=== PATIENT | male | born 1960 | race African-American/Black ===

== ENCOUNTER 2016-06-04 09:40 | Day surgery (SDC) | payer OTHER ==
[~2016-06-04 09:40] MED LIST: HEPARIN IV PRN; HEPARIN ONE; NS 2,000 ML MISC PRN; NS 2,000 ML ONE; TIGHT: 0.2 ML/HR MISC PRN
[2016-06-04 11:06] LABS: HEMOGLOBIN 6.6 g/dL (14.0-18.0); MCH 25.6 PG (27-31); MCHC 31.4 g/dL (33-37); MCV 81.4 FL (81-99); MPV 12.9 FL (7.4-10.4); RBC 2.58 XMIL (4.7-6.1)
[2016-06-04 11:12] LABS: ALBUMIN 2.8 g/dL (3.5-5.0); CALCIUM 8.7 mg/dL (8.8-10.2); POTASSIUM 4.7 mmol/L (3.5-5.1)
[2016-06-04 14:29] VITALS: BP 111/70
== END 2016-06-04 14:25 | disposition home or self-care (01) ==
LOC: INF 09:40
PROVIDERS: ATTEND Internal Medicine Nephrology
DX: N18.6 End stage renal disease (principal); D63.1 Anemia in chronic kidney disease; Z79.899 Other long term (current) drug therapy; Z99.2 Dependence on renal dialysis
CPT/HCPCS: 80069; 85027; 86850; 86900; 86901; 86920; J1644; J7030; P9016

== ENCOUNTER 2016-06-05 09:21 | Emergency (ER) | payer OTHER ==
[2016-06-05 10:02] VITALS: BP 80/50
[2016-06-05] MEDS ORDERED: NORCO-10 PO ONE (10:47)
--- NOTE | 2016-06-05 10:47 | PROVIDER DOCUMENTATION ---
HPI-Musculoskeletal Pain/Inj <Imani Hawthorne - Last Filed: 06/05/16 11:00> - GENERAL Source: patient - HX OF PRESENT ILLNESS-MUSKULOSKELTAL Quality of Pain: reports: throbbing Severity in ED: severe Onset/Duration: last night Timing: still present Modifying Factors: worse with: exercise, movement, palpation Any recent injury?: No Locality of Occurance: Home Similar Symptoms Previously?: No Recently seen or treated by another doctor?: No <Modesto Chua - Last Filed: 06/05/16 11:17> - GENERAL Chief Complaint: Extremity Pain Stated Complaint: EXTREMITY INJURY Time Seen by Provider: 06/05/16 10:44 - HX OF PRESENT ILLNESS-MUSKULOSKELTAL Nature of Presenting Problem: 56 yom recently changed from peritoneal dialysis to hemodialysis M,W,F. Reports cc of left wrist pain since last night. Hx of gout normally in feet. Throbbing radiating pain to mid hand and forearm. Transfers from bed to chair alot. Denies any injuries,f,c,abd pain. (Modesto Chua) Review of Systems - Adult - REVIEW OF SYSTEMS - ADULT Constitutional: denies: chills, fever, fatique Eyes: reports: no symptoms reported Ears, Nose, Mouth & Throat: reports: no symptoms reported Cardiovascular: denies: chest pain, irregular heart rate, orthopnea Respiratory: reports: no symptoms reported Gastrointestinal: reports: no symptoms reported Genitourinary: reports: no symptoms reported Musculoskeletal: reports: see HPI, joint pain. denies: joint swelling, muscle weakness, neck pain Integumentary: reports: no symptoms reported Neurological: reports: no symptoms reported Psychiatric: reports: no symptoms reported Endocrine: reports: no symptoms reported Hematologic/Lymphatic: reports: no symptoms reported Allergic/Immunologic: reports: no symptoms reported All Other Systems: Reviewed and Negative <Modesto Chua - Last Filed: 06/05/16 11:17> Past History - Adult - PAST MEDICAL HISTORY-ADULT Major Childhood Illnesses: reports: denies history Cardiovascular: reports: HTN - PRIOR SURGERIES/PROCEDURES Surgical/Procedure History: reports: back/neck, other (kidney transplant) - PRIOR HOSPITALIZATIONS Prior Hospitalizations: reports: none - IMMUNIZATION STATUS Childhood Immunizations: See Nurse Assessment Flu Vaccine: See Nurse Assessment - FAMILY HISTORY Family History: reviewed, not pertinent <Imani Hawthorne - Last Filed: 06/05/16 11:00> - PAST MEDICAL HISTORY-ADULT Review of Records: reports: Nursing Assessment Review Major Childhood Illnesses: reports: denies history Cardiovascular: reports: HTN Genitourinary: reports: dialysis Neurological: reports: TIA - IMMUNIZATION STATUS Childhood Immunizations: See Nurse Assessment Flu Vaccine: See Nurse Assessment - FAMILY HISTORY Family History: reviewed, not pertinent - SOCIAL HISTORY Smoking: quit greater than 1 year Substance Use: none/never <Modesto Chua - Last Filed: 06/05/16 11:17> Physical Exam-Injury Related - Physical Exam-Injury Related Initial Vital Signs Reviewed: Yes General Appearance: appears well, alert, mild distress Eyes: PERRL/EOMI, pink conjunctivae Head, Ears, Nose, Mouth & Throat: normocephalic/atraumatic, moist mucous membranes, normal ENT inspection, TMs normal, pharynx normal Neck: non-tender, full range of motion, supple, normal inspection Respiratory: chest non-tender, lungs clear, normal breath sounds, no pleuratic chest pain, no respiratory distress, no accessory muscle use Cardiovascular: normal peripheral pulses, regular rate, rhythm, no edema, no gallop, no JVD, no murmur Peripheral Pulses: radial (R): 2+, radial (L): 2+ Abdominal Exam: normal bowel sounds, non tender, soft, no organomegaly, no pulsatile mass Lymphatic: no adenopathy Back Exam: normal inspection, no CVA tenderness, no vertebral tenderness Extremity: normal gait, normal inspection, no pedal edema, no calf tenderness, normal capillary refill, pelvis stable, tenderness (ttp left wrist with erythmema and swelling), 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, no motor/sensory deficits Psych/Mental Status: AL, normal mood/affect, normal thought content, normal thought process, oriented x 3 <Modesto Chua - Last Filed: 06/05/16 11:17> Progress - XRAY 1 XRAY: Left XRAY Study: Wrist Impression: Normal (NAD ER prelim) <Imani Hawthorne - Last Filed: 06/05/16 11:00> <Modesto Chua - Last Filed: 06/05/16 11:17> - PLAN OF CARE/RESULTS Progress/Plan/Lab Results: Orders Category Date Time Status Arm Sling DIRECTED Care 06/05/16 11:00 Active Wrist Splint DIRECTED Care 06/05/16 10:46 Active WRIST COMPLETE LEFT [RAD] Stat Exams 06/05/16 10:46 Taken Hydrocodone/APAP 10 mg/325 mg [[place]-10] Med 06/05/16 10:47 Discontinued 1 each PO NOW ONE Vital Signs - 24 hr 06/05/16 09:55 Temperature 97.8 F Pulse Rate 50 L Respiratory 20 Rate Blood Pressure 80/50 O2 Sat by Pulse 98 Oximetry (Modesto Chua) Procedures - SPLINTING Left Other Location: left wrist Pre-Procedure Neurovascular Exam: Intact Pre-Fabricated Splint: Wrist, Arm Sling Applied By: ED Nurse Post Procedure Neurovascular Exam: Intact <Modesto Chua - Last Filed: 06/05/16 11:17> Departure - Departure Time of Disposition Order: 11:00 Certified Medical Emergency: Emergent <Imani Hawthorne - Last Filed: 06/05/16 11:00> <Modesto Chua - Last Filed: 06/05/16 11:17> - Departure DIAGNOSIS: Gout attack Qualifiers: Gout site: wrist Gout etiology: unspecified cause Laterality: left Qualified Code(s): M10.9 - Gout, unspecified Disposition: HOME 01 Condition: Stable Additional Instructions: Follow up with your primary care physician Take your colchicine as directed ED Follow Up Instructions: You have been treated by a care provider in the Emergency Department. These instructions are being provided to you so you can have an understanding of how to care for yourself upon discharge. Upon discharge from the Emergency Department, you are responsible for making arrangements for follow-up care by a physician of your choice. Take all prescribed medications as directed. Return to the Emergency Department immediately for any new or worsening symptoms. You may call the Physician Referral phone number at [phone] to obtain a list of Physicians who are taking new patients. Prescriptions: Hydrocodone/APAP 7.5 mg/325 mg [[place]-7.5] 1 each PO Q6H PRN PRN #20 tablet PRN Reason: Pain Referrals: Sean Wagoner MD [STAFF PHYSICIAN] - None,PCP [Primary Care Provider] - Instructions: Acetaminophen; Hydrocodone tablets or capsules, Gout, Easy-to- Read Attestation - Physician/ Mid-level Attestation Patient care was provided by Mid-level provider (SCOURER/PA):: Yes Mid-level provider:: Imani Hawthorne Mid-level documentation review:: The Mid-level provider documentation, treatment plan and medical decision making was reviewed by the physician who agrees with all treatment and medical decision making by the MLP. <Imani Hawthorne - Last Filed: 06/05/16 11:00> - Scribe Verification/Attestation Scribe:: Modesto Chua Acting as Scribe for:: Imani Hawthorne Scribe documention review:: This chart was documented by a scribe and accurately reflects the service the provider performed and the decisions made by the provider. <Modesto Chua - Last Filed: 06/05/16 11:17> Physician Attestation
--- NOTE | 2016-06-05 14:22 | Diag Imaging Result Document ---
PROCEDURE NAME: WRIST COMPLETE LEFT - 06/05/2016 LEFT WRIST, THREE VIEWS INDICATION: Wrist pain. FINDINGS: Bone density is within normal limits. There is a tiny calcific density adjacent to the lunate on the lateral view of the wrist. This may be seen with a triquetral fracture in the setting of trauma or calcific peritendinitis. Correlate clinically. The joint spaces are well maintained. There is deformity about the fifth metacarpal, consistent with old trauma. IMPRESSION: Dorsal linear density may represent calcific tendinitis vs triquetral fracture. Correlate clinically. [facility]
== END 2016-06-05 11:22 | disposition home or self-care (01) ==
LOC: P.ED 09:21
DX: M10.9 Gout, unspecified (principal); M25.532 Pain in left wrist; I10 Essential (primary) hypertension; Z86.73 Personal history of transient ischemic attack (TIA), and cerebral infarction without residual deficits; Z94.0 Kidney transplant status; Z79.899 Other long term (current) drug therapy; Z79.02 Long term (current) use of antithrombotics/antiplatelets
CPT/HCPCS: 99284

== ENCOUNTER 2016-08-02 11:25 | Inpatient (IN) | payer OTHER ==
[2016-08-02] MEDS: ZOSYN 2.25 GM/NS 50 ML IV SCH (00:02)
--- NOTE | 2016-08-02 12:40 | Diag Imaging Result Document ---
PROCEDURE NAME: CHEST-2 VIEWS - 08/02/2016 FRONTAL AND LATERAL CHEST, TWO VIEWS: COMPARISON: 06/20/2016. FINDINGS: There are basilar infiltrates bilaterally. There is a small left pleural effusion as well. The heart is not enlarged. The upper lungs are clear. IMPRESSION: Bibasilar infiltrates with a small left effusion.
[2016-08-02 13:52] LABS: BASO% 0.3 % (0.0-0.8); EOS# 0.55 X1000 (0.0-0.7); EOS% 8.7 % (0.0-10.0); HEMATOCRIT 30.5 % (42.0-52.0); HEMOGLOBIN 10.2 g/dL (14.0-18.0); IMM GRAN# 0.02 X1000 (0.0-0.04); IMM GRAN% 0.3 % (0.0-0.5); LYMPH# 1.07 X1000 (1.2-3.4); LYMPH% 16.9 % (20.5-51.1); MANUAL DIFF NEEDED? YES; MCH 23.6 PG (27-31); MCHC 33.4 g/dL (33-37); MCV 70.4 FL (81-99); MONO# 0.67 X1000 (0.11-0.59); MONO% 10.6 % (1.7-9.3); NEUT% 63.2 % (42.2-75.2); PLT 223 X1000 (130-400); RBC 4.33 XMIL (4.7-6.1)
[2016-08-02] MEDS ORDERED: ALBUTEROL NEB INH ONE (14:01)
[2016-08-02 14:14] LABS: BANDS 1 % (0-1); EOS 5 % (1-10); LYMPHS 17 % (21-51); MONO 7 % (1-9)
[2016-08-02 14:22] LABS: CALCIUM 8.6 mg/dL (8.8-10.2); POTASSIUM 4.4 mmol/L (3.5-5.1); TOTAL BILIRUBIN 0.52 mg/dL (0.20-1.00); TOTAL PROTEIN 7.9 g/dL (6.3-8.3)
--- NOTE | 2016-08-02 14:54 | PROVIDER DOCUMENTATION ---
HPI-Respiratory General - General Chief Complaint: Cough Stated Complaint: PNEUMONIA Time Seen by Provider: 08/02/16 13:25 Source: patient, family Allergies/Adverse Reactions: Patient Allergies Allergy/AdvReac Type Severity Reaction Status Date / Time No Known Allergies Allergy Verified 08/02/16 14:42 Home Medications: Home Medication List Medication Instructions Recorded Confirmed Last Taken Type Allopurinol [Zyloprim] 200 mg PO DAILY 07/12/13 08/02/16 06/03/16 History Bumetanide 2 tab PO BID 07/12/13 08/02/16 06/03/16 History Omeprazole 10 mg PO BID 07/12/13 08/02/16 06/03/16 History PRAVAstatin [Pravachol] 40 mg PO DAILY 07/12/13 08/02/16 06/03/16 History Carvedilol 6.25 mg PO BID 08/08/14 08/02/16 06/03/16 History Clopidogrel Bisulfate [Plavix] 75 mg PO DAILY 02/26/16 08/02/16 06/03/16 History Diltiazem HCl [Diltiazem ER] 1 tab PO DAILY 06/04/16 08/02/16 06/03/16 History Losartan [Cozaar] 50 mg PO DAILY 06/04/16 08/02/16 06/03/16 History Hydrocodone/APAP 7.5 mg/325 mg 1 each PO Q6H PRN PRN #20 tablet 06/05/16 Unknown Rx [[place]-7.5] Colchicine 0.6 mg PO DAILY PRN PRN 08/02/16 08/02/16 Unknown History Sevelamer Carbonate [Renvela] 800 mg PO TID 08/02/16 08/02/16 Unknown History Vitamin B Complex & Vit C No.3 [B 1 tab PO DAILY 08/02/16 08/02/16 Unknown History Complex with Vitamin C] - History of Present Illness-Resp Nature of Presenting Problem: 56 Y/O m PRESENTED TO ER COMPLAINING OF PRODUCTIVE YELLOW/GREENISH COUGH AND CHRONIC SOB THAT HAVE BEEN GETTING WORSE LATELY. HE STATED THAT HE WAS RECENTLY ADMITTED AT [facility] FOR UTI AND PNEUMONIA AND WAS TREATED WITH IV ANITBIOTIC FOR ONE WEEK AND WAS DISCHARGED HOME. HE HAS A HISTORY OF CHRONIC KIDNEY DISEASE S/P TRANSPLANT AND CHRONIC ANEMIA WHICH RENDERED HIM SHORT OF BREATH CHRONICALLY. HE DENIES FEVER, CHILLS, CHEST PAIN. Severity in ED: reports: moderate Onset/Duration: reports: 2 days ago Timing: reports: getting worse Context: reports: recent URI Cough Quality/Degree: reports: moderate Episode Frequency: no prior episodes Current Respiratory Medication Therapy: Initiated none Associated Symptoms: reports: shortness of breath. denies: fever/chills, flu- like symptoms, nasal congestion, sore throat, wheezing Similar Symptoms Previously?: Yes Recently seen or treated by another doctor?: Yes Review of Systems - Adult - REVIEW OF SYSTEMS - ADULT Constitutional: reports: no symptoms reported Eyes: reports: no symptoms reported Ears, Nose, Mouth & Throat: reports: no symptoms reported Cardiovascular: reports: no symptoms reported Respiratory: reports: cough, dyspnea on exertion, excessive sputum production, shortness of breath Gastrointestinal: reports: no symptoms reported Genitourinary: reports: no symptoms reported Musculoskeletal: reports: no symptoms reported Integumentary: reports: no symptoms reported Neurological: reports: no symptoms reported Past History - Adult - PAST MEDICAL HISTORY-ADULT Review of Records: reports: Nursing Assessment Review Major Childhood Illnesses: reports: denies history Cardiovascular: reports: congenital heart disease, HTN Respiratory: reports: other (CHYLOTHORAX) Gastrointestinal: reports: denies history Genitourinary: reports: dialysis Neurological: reports: TIA - PRIOR SURGERIES/PROCEDURES Surgical/Procedure History: reports: back/neck, other (kidney transplant) - PRIOR HOSPITALIZATIONS Prior Hospitalizations: reports: none - IMMUNIZATION STATUS Childhood Immunizations: See Nurse Assessment Flu Vaccine: See Nurse Assessment - FAMILY HISTORY Family History: reviewed, not pertinent Physical Exam-General - PHYSICAL EXAM-ADULT Initial Vital Signs Reviewed: Yes - CONSTITUTIONAL General Appearance: mild distress - EYES Eyes: PERRL/EOMI - HEAD, EARS, NOSE, MOUTH & THROAT HENMT: normocephalic/atraumatic - NECK Neck: full range of motion, supple - RESPIRATORY Respiratory: lungs clear, no pleuratic chest pain, decreased breath sounds (On the left side). negative: wheezing - CARDIOVASCULAR Cardiovascular: regular rate, rhythm. negative: JVD - GASTROINTESTINAL (ABDOMEN) Abdominal Exam: normal bowel sounds, soft - MUSCULOSKELETAL Extremity: pedal edema Peripheral Pulses: dorsalis-pedis (R): 0, dorsalis-pedis (L): 0 Progress - PLAN OF CARE/RESULTS Progress/Plan/Lab Results: Vital Signs - 24 hr 08/02/16 08/02/16 11:32 14:36 Temperature 98.6 F Pulse Rate 86 82 Respiratory 18 16 Rate Blood Pressure 133/71 O2 Sat by Pulse 100 88 L Oximetry Laboratory Tests 08/02/16 08/02/16 08/02/16 13:21 13:21 13:21 WBC 6.35 RBC 4.33 L Hgb 10.2 L Hct 30.5 L MCV 70.4 L MCH 23.6 L MCHC 33.4 RDW Std Deviation 24.6 H Plt Count 223 MPV Not Reportable Immature Gran % (Auto) 0.3 Neut % (Auto) 63.2 Lymph % (Auto) 16.9 L Stanton % (Auto) 10.6 H Eos % (Auto) 8.7 Baso % (Auto) 0.3 Immature Gran # (Auto) 0.02 Neut # (Auto) 4.02 Lymph # (Auto) 1.07 L Stanton # (Auto) 0.67 H Eos # (Auto) 0.55 Baso # (Auto) 0.02 Segmented Neutrophils 70 Band Neutrophils 1 Lymphocytes 17 L Monocytes 7 Eosinophils 5 Poikilocytosis 2+ Anisocytosis 3+ Microcytosis 1+ Sodium 131 L Potassium 4.4 Chloride 93 L Carbon Dioxide 23 L Anion Gap 15 BUN 39 H Creatinine 6.5 H Estimated GFR/1.73 m2 11 BUN/Creatinine Ratio 6 Glucose 76 Calculated Osmolality 271 Calcium 8.6 L Total Bilirubin 0.52 AST 89 H ALT 63 H Alkaline Phosphatase 104 Egs-S-Oathwuzefgx Pept > 25815 H Total Protein 7.9 Albumin 3.0 L Globulin 4.9 Albumin/Globulin Ratio 0.6 - REASSESSMENT Reassessment #1 Time Reassessed: 15:11 Status: unchanged - XRAY 1 XRAY: Bilateral Impression: Abnormal (B/L basilar infiltrates and left sided pleural effusion) - CONSULTS/PCP/HOSPITALIST Notification #1 *Consult/PCP/Hospitalist*: dr. johnson Departure - Departure Time of Disposition Order: 15:11 DIAGNOSIS: HCAP (healthcare-associated pneumonia), Acute systolic CHF (congestive heart failure), NYHA class 3, Chronic renal failure, stage 5, Anemia Disposition: ADMITTED INPATIENT 09 Certified Medical Emergency: Emergent Condition: Fair Referrals: Alireza Nagel MD [Primary Care Provider] -
[2016-08-02] MEDS ORDERED: LEVAQUIN 750 MG/D5W 150 ML IV ONE (15:07)
--- NOTE | 2016-08-02 17:45 | HISTORY AND PHYSICAL ---
CHIEF ACCOUNTANT: Dr. Alireza Nagel. CHIEF COMPLAINT: Cough, shortness of breath. HISTORY OF PRESENT ILLNESS: Mr. Green is a 56-year-old male with a history of ESRD on hemodialysis followed by Dr. Nagel, also a history of severe atherosclerotic disease, hypertension, chronic anemia requiring blood transfusions and others, who presents with 3 weeks of shortness of breath and cough. He has had progressively worse cough with purulent sputum production over the past 3 weeks. He denies any fevers but reports overall worsening shortness of breath and fatigue. He denies any overt chest pain. There is no abdominal pain , nausea, vomiting. There is no diarrhea. He reports occasional bilateral lower extremity edema but this is normal for him. He came to the ER today for evaluation. His chest x-ray showed bilateral infiltrates, lab data consistent with ESRD but no leukocytosis. Of note, the patient was at [facility] recently and he was treated for VRE UTI and pneumonia. He was treated with IV antibiotics and discharged home. His vital signs are stable. We are now going to admit him for further treatment and evaluation. PAST MEDICAL HISTORY: 1. ESRD on hemodialysis Friday, , Friday followed by Dr. Nagel. 2. Chronic anemia requiring IV blood transfusions. 3. History of non-Hodgkin's lymphoma status post R-CHOP. 4. Hypertension. 5. Hyperlipidemia. 6. Severe atherosclerotic disease/vasculopathy. SURGICAL HISTORY: Patient has had multiple AV grafts and dialysis catheters placed. He has had back surgery. He has had bilateral kidney transplants as well as bilateral nephrectomies. He has had thoracic surgery secondary to a thoracic duct leak, he has also recently had a lower extremity vascular bypass at [facility] by Dr. Castellon. RO. SOCIAL HISTORY: Patient denies tobacco, alcohol or drug use. He is . He has 5 children. FAMILY HISTORY: Noncontributory. REVIEW OF SYSTEMS: Ten point review of systems obtained and found to be negative with the exception of the HPI. HOME MEDICATIONS: Zyloprim 200 mg daily, Bumex 2 mg b.i.d., carvedilol 6.25 mg p.o. b.i.d., Plavix 75 mg daily, colchicine 0.6 mg daily, Cardizem ER 180 mg p.o. daily, Cozaar 50 mg daily, omeprazole 10 mg b.i.d., Pravachol 40 mg daily, Renvela 800 mg p.o. t.i.d., vitamin B complex and vitamin C #3 1 tab daily, [place] 7.5 mg as needed. PHYSICAL EXAMINATION: VITAL SIGNS: Blood pressure is 133/71, heart rate 86, respiratory rate 18, O2 saturation 100% on room air, temperature is 98.6 degrees. GENERAL: This is a well-developed, well-nourished male lying in hospital bed in no acute distress. NEUROLOGIC: The patient is awake, alert and oriented. He follows commands without focal deficits. HEENT: Head is atraumatic, normocephalic. Pupils equal, round, reactive to light. Oral mucosa is moist. Trachea is midline. No JVD or carotid bruits. CHEST: Coarse bilaterally. No increased work of breathing noted. CV: Regular rate and rhythm. S1-S2 is noted. GI: Soft, nondistended, nontender. PD catheter is noted. EXTREMITIES: With trace edema and pulses palpable but diminished bilaterally. DIAGNOSTIC DATA: Chest x-ray shows bibasilar infiltrates with small left effusion. WBC 6.35, hemoglobin 10.2, hematocrit 30.5, platelet count 223,000. Sodium 131, potassium 4.4, chloride 93, CO2 23, anion gap 15, BUN 39, creatinine 6.5, glucose 76, calcium 8.6, bilirubin 0.52, AST 89, ALT 63, alkaline phosphatase 104, albumin is 3. ASSESSMENT AND PLAN: 1. Pneumonia failed outpatient and inpatient treatment: Blood cultures have been obtained. Will obtain sputum cultures and add healthcare-associated pneumonia antibiotics including renally dosed vancomycin and Zosyn. Continue breathing treatments, daily chest x- rays, aggressive pulmonary toilet and oxygen as needed. 2. End-stage renal disease on hemodialysis: Followed by Dr. Nagel. We will consult him for hemodialysis management. Currently his hemoglobin and hematocrit is stable. Acid-base balance is stable. We will continue to monitor. 3. Hypertension: Chronic and stable, continue home medications. 4. Hyperlipidemia: Chronic and stable, continue home medications. 5. Severe atherosclerotic disease/vasculopathy: Continue home medications. This is chronic and stable. 6. Gastrointestinal prophylaxis. Provided with his home PPI. DVT prophylaxis will be provided with heparin given his ESRD. Further recommendations to follow. Dictated by LAMINE Mir for Michelle Kaye MD The patient was seen and examined by me. I agree with the assessment and plan as dictated. MTDD
[2016-08-02] MEDS ORDERED: RENVELA POWDER PACKET PO SCH (20:19)
[2016-08-02] MEDS ORDERED: VANCOMYCIN IV PER PHARMACY IV SCH (20:19)
[2016-08-02] MEDS ORDERED: DUONEB (A & A) INH PRN (20:19)
[2016-08-02] MEDS ORDERED: APRESOLINE IV PRN (20:19)
[2016-08-02] MEDS: DUONEB (A & A) INH SCH (20:41)
[2016-08-02] MEDS ORDERED: VANCOMYCIN 1 GM/NS 250 ML IV ONE (21:00)
[2016-08-02] MEDS ORDERED: BUMETANIDE PO SCH (21:00)
[2016-08-02] MEDS: PRILOSEC PO SCH (21:01)
[2016-08-02] MEDS: COREG PO SCH (21:01)
[2016-08-02] MEDS: NORCO-7.5 PO PRN (21:02)
[2016-08-02] MEDS: HEPARIN SUBQ SCH (21:02)
[2016-08-02] MEDS: MERREM 500 MG in NS 50 ML IV SCH (21:03)
[2016-08-02] MEDS: ZYLOPRIM PO SCH (21:43)
[2016-08-03] MEDS: DUONEB (A & A) INH SCH ×7 (00:08→23:42)
[2016-08-03 07:23] LABS: HEMATOCRIT 26.9 % (42.0-52.0); HEMOGLOBIN 8.8 g/dL (14.0-18.0); MCH 23.3 PG (27-31); MCHC 32.7 g/dL (33-37); MCV 71.2 FL (81-99); PLT 167 X1000 (130-400); RBC 3.78 XMIL (4.7-6.1)
[2016-08-03 07:38] LABS: ALBUMIN 2.5 g/dL (3.5-5.0); DIRECT BILIRUBIN 0.2 mg/dL (0.00-0.20); POTASSIUM 4.2 mmol/L (3.5-5.1); TOTAL BILIRUBIN 0.52 mg/dL (0.20-1.00); TOTAL PROTEIN 6.8 g/dL (6.3-8.3)
[2016-08-03] MEDS ORDERED: TIGHT: 0.2 ML/HR MISC PRN (07:44)
[2016-08-03] MEDS ORDERED: HEPARIN IV PRN (07:44)
[2016-08-03] MEDS ORDERED: NS 2,000 ML MISC PRN (07:44)
[2016-08-03] MEDS ORDERED: ZYLOPRIM PO SCH (09:00)
[2016-08-03] MEDS ORDERED: DILTIAZEM HCL PO SCH (09:00)
[2016-08-03] MEDS ORDERED: HEPARIN ONE (10:04)
[2016-08-03] MEDS ORDERED: NS 2,000 ML ONE (10:05)
[2016-08-03] MEDS: RENAGEL PO SCH ×3 (11:08→17:30)
[2016-08-03] MEDS: ZOSYN 2.25 GM/NS 50 ML IV SCH ×3 (11:08→21:52)
[2016-08-03] MEDS: COREG PO SCH ×2 (11:09→20:33)
[2016-08-03] MEDS: COZAAR PO SCH ×2 (11:09→17:30)
[2016-08-03] MEDS: ZYLOPRIM PO SCH (11:09)
[2016-08-03] MEDS: PRAVACHOL PO SCH ×2 (11:09→17:31)
[2016-08-03] MEDS: PRILOSEC PO SCH ×2 (11:09→20:33)
[2016-08-03] MEDS: VICON-C PO SCH ×2 (11:09→17:31)
[2016-08-03] MEDS: HEPARIN SUBQ SCH ×2 (11:10→20:32)
[2016-08-03] MEDS: PLAVIX PO SCH ×2 (11:10→17:31)
--- NOTE | 2016-08-03 11:49 | Diag Imaging Result Document ---
PROCEDURE NAME: CHEST-2 VIEWS - 08/03/2016 CHEST, TWO VIEWS: COMPARISON: August 02, 2016. FINDINGS: There is some increase in infiltrate in the right base. There has been apparent mild decrease in infiltrate in the left base. There is persistent small left pleural effusion. There is no pneumothorax seen. Heart size appears upper normal and stable. IMPRESSION: 1. Increase in infiltrate at right base. Mild decrease in infiltrate at left base. 2. Persistent small left pleural effusion. [facility]
[2016-08-03] MEDS ORDERED: VANCOMYCIN 1 GM/NS 250 ML IV SCH (12:00)
--- NOTE | 2016-08-03 16:16 | PROGRESS NOTE ---
DATE: 08/03/2016 SUBJECTIVE: The patient is rest sitting comfortably in bed. He is very angry because he wants to go home. OBJECTIVE: Vital Signs: Temperature 98.4 degrees, blood pressure 139/56, heart rate 85, respirations 18, O2 saturations 99% on 2 L nasal cannula. General: This is a morbidly obese elderly male lying in bed in no acute distress. Head: Normocephalic, atraumatic. Heart: S1, S2. Normal. Regular rate and rhythm. Lungs: Coarse breath sounds bilaterally. Abdomen: Positive bowel sounds. Soft, nontender, nondistended. Extremities: Trace edema. No cyanosis, no calf tenderness. Neurologic: The patient is alert oriented x3. LABS: White blood cell count 4.3, hemoglobin 8.8, hematocrit 26, platelets 167, 000. Sodium 131, potassium 4.2, chloride 94, CO2 22, BUN 46, creatinine 7.8, glucose 68, phosphorus 4.9, AST 70, ALT 56. ASSESSMENT AND PLAN: 1. Recurrent pneumonia. Continue on broad-spectrum IV antibiotic therapy. Will follow up on the sputum culture and blood cultures. Will also continue with bronchodilator therapy. ID consult. 2. End-stage renal disease. The patient is due for dialysis today. Management as per the bus inspector. 3. Morbid obesity. Aware. 4. Hypertension. Controlled. 5. Dyslipidemia. Continue on Pravachol. 6. History of gout. Continue on allopurinol. 7. Elevated LFTs. Will check a hepatitis profile. 8. Deep vein thrombosis prophylaxis. Continue on heparin 5000 units subcutaneous every 12 hours. [facility]
[2016-08-03] MEDS ORDERED: LEVAQUIN 250 MG/D5W 50 ML IV SCH (17:00)
--- NOTE | 2016-08-03 20:10 | CONSULTATION ---
DATE OF CONSULTATION: 08/03/2016 REASON FOR ADMISSION: Cough with shortness of breath. REASON FOR CONSULT: Assistance with medical management. HISTORY OF PRESENT ILLNESS: Mr. Green is a 56-year-old male who is known to our outpatient services for hemodialysis on Friday, , Friday at the [facility]. Patient was subsequently recently hospitalized at [facility] for pneumonia. His had called our office yesterday morning indicated that he needed further antibiotics. Secondary to our office not having seen this patient or treated him since his discharge we have recommended that he go to [facility] for further evaluation. He was treated for VRE UTI and pneumonia with IV antibiotics. According to the it was vancomycin and Fortaz. Upon discharge patient stated that he was not feeling well, continue with weakness, continue with cough which was worsening with increased work of breathing and fatigue. He denied any overt chest pain. No nausea, vomiting, no diarrhea. Occasional bilateral increased lower extremity swelling. No fever or chills. Subsequently on evaluation in the emergency room noted that his chest x-ray showed bilateral infiltrates. No leukocytosis. Subsequently he has been admitted for pneumonia with further workup and need for dialysis today. PAST MEDICAL HISTORY: 1. End-stage renal disease with hemodialysis on Friday, , Friday at the [facility]. 2. Chronic anemia requiring IV transfusions secondary to #1. 3. History of non-Hodgkin's lymphoma status post R/CHOP. 4. Hypertension. 5. Hyperlipidemia. 6. Severe atherosclerotic vascular disease. 7. He has a history of osteodystrophy secondary to chronic disease. PREVIOUS SURGICAL HISTORY: Multiple AV grafts and dialysis catheters placed. He currently has a tunnel catheter to the left leg. 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 Bell to the left leg. SOCIAL HISTORY: He is . He lives with his spouse. Denies any tobacco, alcohol or illicit drug use. Five children who are attentive to his care. FAMILY HISTORY: Noncontributory. No history of end-stage renal disease though CKD is noted. Hypertension is noted. ALLERGIES: His most recent medications are listed as no known drug allergies. HOME MEDICATIONS: Bumetanide, Pravachol, Zyloprim, omeprazole, carvedilol, Plavix, Cozaar, diltiazem, Williams, Dialyvite B complex vitamin, colchicine and Renvela. Patient also receives Protein X, Ferrlecit, Aranesp and Rocaltrol at the outpatient clinic as indicated per his labs. REVIEW OF SYSTEMS: Times 10 with pertinent positives listed above in the HPI. VITAL SIGNS: Most recent. Temperature 98.4 degrees, blood pressure 139/56, heart rate 85, respirations 18. He is on 2 L nasal cannula. Last recorded saturation 99%. He has had 1070 in, he has had 0 out with need for dialysis today. LABS: Sodium 131, potassium 4.2, chloride 94, CO2 22, BUN 46, creatinine 7.8, glucose 68, anion gap 15, calcium 9, phosphorus 4.9, albumin 2.5. White count 4.35, hemoglobin 8.8, hematocrit 26.9 with a platelet count of 167,000. PHYSICAL EXAMINATION: General: This is a 56-year-old male. He is currently resting in bed. He is in no acute distress. Skin: Warm and dry. HEENT: Normocephalic, atraumatic. Conjunctiva is pale. He has DAMIEN. Mucous membranes are moist. Neck: Supple. Trachea midline. No JVD. Cardiovascular: He is regular rate and rhythm. No murmur or gallop appreciated today. Lungs: Clear to auscultation anterior. Slightly coarse to the upper lobes, remains on O2, equal excursion. Abdomen: Large, round, soft, nontender, positive bowel sounds. Extremities: With tunnel catheter to the left thigh into the left groin, trace edema. No clubbing or cyanosis. Integumentary: No rashes or lesions noted. Neurological : Alert and oriented x3. ASSESSMENT AND PLAN: 1. End-stage renal disease. Patient is due for his routine dialysis today. We will place him on a 2 K bath. He is to dialyze for 3-1/2 hours. We will attempt to pull patient to his dry weight. 2. Pneumonia with failed outpatient treatment and inpatient from [facility]. He is currently being admitted and administered IV antibiotics per renal dosing. He is currently on Merrem and Levaquin with plans that he may go home on p.o. Levaquin upon discharge. 3. Electrolytes. These are stable. 4. Acid-base balance. This is stable. 5. Anemia. This remains low but stable. 6. Gastrointestinal prophylaxis with a PPI and a DVT, continues per primary care team. I would like to thank you for allowing us to follow with this patient. TIME SEEN: 824 Data reviewed. i agree with the above assessment and plan of care. rg Dictated by LAMINE Martel for Alireza Nagel MD MTDD
[2016-08-03] MEDS: MERREM 500 MG in NS 50 ML IV SCH (20:32)
[2016-08-03] MEDS: NORCO-7.5 PO PRN (20:33)
[2016-08-04] MEDS: DUONEB (A & A) INH SCH ×6 (04:42→23:06)
[2016-08-04] MEDS: ZOSYN 2.25 GM/NS 50 ML IV SCH (06:05)
[2016-08-04 07:38] LABS: HEMATOCRIT 26.2 % (42.0-52.0); HEMOGLOBIN 8.6 g/dL (14.0-18.0); MCH 23.1 PG (27-31); MCHC 32.8 g/dL (33-37); MCV 70.4 FL (81-99); PLT 210 X1000 (130-400); RBC 3.72 XMIL (4.7-6.1)
--- NOTE | 2016-08-04 07:38 | Diag Imaging Result Document ---
PROCEDURE NAME: CHEST-PORTABLE - 08/04/2016 PORTABLE CHEST: COMPARISON: Compared to 08/03/2016. FINDINGS: The lungs are well expanded. The heart is not enlarged. There is a small left pleural effusion. There are diffuse bilateral infiltrates. These are slightly more pronounced than on the prior exam. IMPRESSION: Mild interval worsening.
[2016-08-04 08:07] LABS: ALBUMIN 2.4 g/dL (3.5-5.0); CALCIUM 8.1 mg/dL (8.8-10.2); DIRECT BILIRUBIN 0.2 mg/dL (0.00-0.20); POTASSIUM 4.1 mmol/L (3.5-5.1); TOTAL BILIRUBIN 0.53 mg/dL (0.20-1.00); TOTAL PROTEIN 6.4 g/dL (6.3-8.3)
[2016-08-04] MEDS ORDERED: NS IV SCH (09:57)
[2016-08-04] MEDS ORDERED: MERREM IV SCH (09:57)
[2016-08-04] MEDS: HEPARIN SUBQ SCH ×2 (10:01→20:11)
[2016-08-04] MEDS: VICON-C PO SCH (10:01)
[2016-08-04] MEDS: PLAVIX PO SCH (10:01)
[2016-08-04] MEDS: COZAAR PO SCH (10:01)
[2016-08-04] MEDS: RENAGEL PO SCH ×3 (10:01→18:03)
[2016-08-04] MEDS: PRAVACHOL PO SCH (10:01)
[2016-08-04] MEDS: PRILOSEC PO SCH ×2 (10:01→20:11)
[2016-08-04] MEDS: ZYLOPRIM PO SCH (10:02)
[2016-08-04] MEDS: COREG PO SCH ×2 (10:02→20:11)
--- NOTE | 2016-08-04 11:33 | Diag Imaging Result Document ---
PROCEDURE NAME: CT THORAX W/O CONTRAST - 08/04/2016 CT CHEST WITHOUT CONTRAST: FINDINGS: Dose reduction protocol. There are small bilateral pleural effusions. The one on the right measures 2.3 cm posteriorly and inferiorly in the midline. The one on the left is smaller than this. The heart is not enlarged although there is a small pericardial effusion. There are prominent coronary artery calcifications and atherosclerotic calcifications in the aorta. There is a left subclavian vein stent. There are small mediastinal lymph nodes. Multifocal dense bilateral infiltrates are present as well as atelectasis to the left lung. Limited images through the upper abdomen reveal a small amount of ascites in addition to prominent atherosclerosis. IMPRESSION: 1. Bilateral dense multifocal pneumonia. 2. Small effusions as well as a small pericardial effusion. 3. Prominent atherosclerosis. 4. Left-sided atelectasis.
[2016-08-04] MEDS ORDERED: ZOSYN 2.25 GM in NS 100 ML IV SCH (12:00)
--- NOTE | 2016-08-04 12:37 | PROGRESS NOTE ---
DATE: 08/04/2016 SUBJECTIVE: The patient states that he feels better today; however, he is still coughing up yellow sputum. No acute events noted overnight. OBJECTIVE: Vital signs: Temperature is 98.2, blood pressure 153/79, heart rate 89, respirations 20, O2 saturation is 95% on room air. General: This is a morbidly obese male lying in bed, in no acute distress. HEENT: Head is normocephalic and atraumatic. Heart: S1, S2, normal. Regular rate and rhythm. Lungs: Coarse breath sounds bilaterally. No crackles. No rales. Abdomen: Positive bowel sounds. Soft, obese, nontender and nondistended. Extremities: No edema. No cyanosis. No calf tenderness. Neurologic: The patient is alert and oriented x3. No focal neurological deficits noted. DIAGNOSTIC DATA: White blood cell count is 4.1, hemoglobin 8.6, hematocrit 26, platelets 212. Sodium is 130, potassium 4.1, chloride 94, CO2 is 21, BUN is 38, creatinine 6.7 , glucose 59. AST is 67, ALT is 51. Albumin is 2.4. Chest x-ray shows diffuse bilateral infiltrates. ASSESSMENT AND PLAN: 1. Recurrent pneumonia. The CT of the chest shows a multifocal pneumonia. ID has been consulted. Continue on broad spectrum antibiotics. Sputum culture results are pending. 2. End stage renal disease. The patient was dialyzed yesterday. 3. Hyponatremia. This appears to be chronic. We will monitor this closely. 4. Morbid obesity. Aware. 5. Hypertension. Controlled. 6. Dyslipidemia. Continue on Pravachol. 7. History of gout. Continue on allopurinol. 8. Transaminitis. This appears to be improving slowly. A hepatitis profile is currently pending. 9. History of non-Hodgkin's lymphoma, status post chemotherapy. Aware. 10.DVT prophylaxis. Continue on heparin 5000 units subcutaneously every 12 hours. [facility]
[2016-08-04] MEDS ORDERED: MAXIPIME 1 GM/NS 50 ML IV ONE (14:59)
[2016-08-04] MEDS ORDERED: MAXIPIME 1 GM/NS 50 ML IV SCH (15:15)
--- NOTE | 2016-08-04 22:44 | CONSULTATION ---
DATE OF CONSULTATION: 08/04/2016 CONCLUSION: The patient is admitted to the hospital with a bilateral pneumonia. Even though his x-ray shows bilateral infiltrates, clinically to me the patient appears as though he is improving and that in his room on examining him he did not appear toxic at all and was not having any trouble breathing. MEDICATIONS: The patient is on Levaquin, meropenem, Zosyn and vancomycin. PHYSICAL EXAMINATION: Vital Signs: Temperature is 98.1 degrees, pulse 86, respirations 18. Blood pressure 145/77. Patient weighs 194 pounds. Generally: This is an obese , middle-aged male. He is in no acute distress at this time. Head, Eyes, ears, nose and throat: He can hear my spoken words and see near objects. No drainage noted from the nose or ears. Neck: No meningismus. Thorax: No increased AP diameter to the chest. Lungs: Clear to auscultation. Cardiovascular: Heart rate is regular. Abdomen: Soft and nontender. There is a peritoneal dialysis catheter in the left side of the abdomen. Extremities: The patient has a right leg tunneled vascular catheter for purposes of dialysis. No rash noted. Neurologic : Patient is alert. He can move his extremities. There is no tremor. Extremities: In his right leg the dressing is intact. Recommendation:I think that the patient could go home on IV antibiotics, namely vancomycin and cefepime being given in a dose of 1 g of each after each dialysis. I will be following the patient in the office at which time I will repeat his chest x-ray to see if the infiltrates are getting better. COMORBIDITIES: Are that he is a renal transplant and he is in renal failure and is on dialysis. ALLERGIES: The patient does not have any drug allergies. HOME MEDICATIONS: Include diltiazem, bumetanide, hydrocodone, Plavix, carvedilol, Renvela, colchicine, Pravachol, Cozaar and Zyloprim. PAST MEDICAL HISTORY/MEDICAL DISEASES: Gout, gastroesophageal reflux disease, end stage renal disease and renal transplant. PAST SURGICAL HISTORY: Renal transplant, peritoneal dialysis catheter, hemodialysis catheters, bilateral nephrectomy. REVIEW OF SYSTEMS: Eyes and ears-no hearing or vision loss. Respiratory-no cough or dyspnea. Cardiovascular- no chest pain or palpitations. Gastrointestinal-no nausea, vomiting or diarrhea. Orthopedic-no arthralgia or myalgia. Neurologic-no seizure or paralysis. Skin-no rash. Hematologic-chronic anemia. FAMILY HISTORY: Positive for diabetes and hypertension. Thank you for the consult. I think the patient can go home on the above- mentioned antibiotics given after each dialysis. I will be seeing the patient back in my office in 3 weeks. I will be asking Dr. Nagel to order his vancomycin and cefepime after each dialysis. MTDD
[2016-08-05] MEDS: DUONEB (A & A) INH SCH ×3 (03:47→11:05)
[2016-08-05 07:28] VITALS: BP 161/91
[2016-08-05 08:11] LABS: ALBUMIN 2.5 g/dL (3.5-5.0); CALCIUM 8.3 mg/dL (8.8-10.2); DIRECT BILIRUBIN 0.3 mg/dL (0.00-0.20); POTASSIUM 4.5 mmol/L (3.5-5.1); TOTAL BILIRUBIN 0.57 mg/dL (0.20-1.00); TOTAL PROTEIN 6.7 g/dL (6.3-8.3)
[2016-08-05 08:26] LABS: HEMATOCRIT 26.4 % (42.0-52.0); HEMOGLOBIN 8.7 g/dL (14.0-18.0); MCH 22.9 PG (27-31); MCV 69.5 FL (81-99); PLT 203 X1000 (130-400)
[2016-08-05] MEDS: PRAVACHOL PO SCH (09:46)
[2016-08-05] MEDS: VICON-C PO SCH (09:46)
[2016-08-05] MEDS: COZAAR PO SCH (09:46)
[2016-08-05] MEDS: PLAVIX PO SCH (09:46)
[2016-08-05] MEDS: PRILOSEC PO SCH (09:46)
[2016-08-05] MEDS: COREG PO SCH (09:47)
[2016-08-05] MEDS: RENAGEL PO SCH ×2 (09:47→12:25)
[2016-08-05] MEDS: ZYLOPRIM PO SCH (09:47)
[2016-08-05] MEDS: HEPARIN SUBQ SCH (10:02)
--- NOTE | 2016-08-05 11:00 | EKG Report ---
Test Performed on : 08/02/2016 3:07:42 PM Test Reason : CHEST PAIN Blood Pressure : / mmHG Vent. Rate : 085 BPM Atrial Rate : 085 BPM P-R Int : 174 ms QRS Dur : 116 ms QT Int : 440 ms P-R-T Axes : 002 -65 230 degrees QTc Int : 523 ms Normal sinus rhythm. Left axis deviation Inferior infarct , age undetermined Anterior infarct , age undetermined T wave abnormality, consider lateral ischemia Abnormal ECG When compared with ECG of 06-OCT-2015 10:07, Questionable change in QRS duration Anterior infarct is now present Inferior infarct is now present Unconfirmed Result
[2016-08-05] MEDS: NORCO-7.5 PO PRN (12:30)
--- NOTE | 2016-08-05 16:06 | Diag Imaging Result Document ---
PROCEDURE NAME: CHEST-PORTABLE - 08/05/2016 PORTABLE CHEST: COMPARISON: 08/04/2016. FINDINGS: Stable ill-defined peripheral infiltrate in the right mid lung and base. Stable infiltrates throughout the left lung diffusely. Stable left-sided effusion or more likely some pleural scarring. Stable mild cardiomegaly. IMPRESSION: No change from prior.
--- NOTE | 2016-08-05 16:46 | PROGRESS NOTE ---
DATE: 08/05/2016 SUBJECTIVE: The patient is resting in bed. He states that he wants to go home today. He said he will go to his dialysis tomorrow at his regular time. OBJECTIVE: Vital Signs: Temperature 98.1 degrees, pulse 92, respiratory rate 18, blood pressure 151/91. Intake and output: Intake 270 mL. Output 350 mL. General: Middle-aged gentleman sitting up on the side of bed, awake, alert, and oriented x4. No acute distress. HEENT: Normocephalic, atraumatic. His oral mucosa is moist. Neck: Supple. Trachea midline. He has no JVD. Cardiovascular: Regular rate and rhythm. No murmur gallop appreciated. Pulmonary: He is clear bilaterally. There is no wheeze or rhonchi appreciated. Abdomen: Soft. Positive bowel sounds. : Not inspected. He has minimal void with hemodialysis assist. Extremities: No clubbing, cyanosis, or edema. Integumentary: Skin is warm and dry without rash or lesion. LAB DATA: WBC of 3.9, hemoglobin 8.7. Sodium 131, potassium 4.5, CO2 20, BUN 46, creatinine 7.9. ASSESSMENT AND PLAN: 1. End-stage renal disease management. His routine dialysis is Friday, , Friday. If patient is discharged today he will go to routine dialysis tomorrow as an outpatient. If not, we will dialyze him in the hospital. 2. Pneumonia. Failed outpatient treatment. He will go home on a gram of vancomycin and gram of Fortaz weeks after each dialysis for the next 3 weeks to complete his outpatient treatment as per infectious disease. 3. Electrolytes, acid-base balance, anemia. These are all stable. Continue to treat outpatient. Dictated by LAMINE Thomas for Alireza Nagel MD
--- NOTE | 2016-08-06 09:25 | DISCHARGE SUMMARY ---
ADMISSION DATE: 08/02/2016 DISCHARGE DATE: 08/05/2016 DISCHARGE DIAGNOSES: 1. Multilobar pneumonia, recurrent. 2. End-stage renal disease. 3. Hyponatremia. 4. Volume overload. 5. Gout. 6. Transaminitis. 7. History of non-Hodgkin's lymphoma. ADMISSION RECORD: 1. Pneumonia, failing outpatient therapy. 2. End-stage renal. CONSULTATIONS: 1. Dr. Nagel for management of dialysis and kidney failure. 2. Dr. Lamb. HISTORY AND HOSPITAL COURSE: Briefly, this is a 56-year-old gentleman who came in for shortness of breath and cough. He has had purulent sputum production. Chest x-ray showed bilateral infiltrates. He had a history of VRE, UTI, and pneumonia which had been treated with IV antibiotics. He was empirically placed on vancomycin and Zosyn prior to consultation with Dr. Lamb. Chest x-ray looked a little worse on the and progressed to a chest CT which showed bilateral dense multifocal pneumonia with some small effusions. Clinically though the patient improved. His saturations were 90 to 99% on room air. He was afebrile. White count was actually low at 3.9 at time of discharge, but clinically he was felt stable for discharge. He will get IV antibiotics after dialysis per Dr. Lamb' recommendation. I am thinking he will at least need 2 weeks, possibly 3 weeks of IV vancomycin and cefepime which will be dosed 1 g after each dialysis. This will be coordinated with the renal service team, Dr. Nagel, to be administered during dialysis. Clinically he was felt stable for discharge on the . DISCHARGE MEDICATIONS: Bumex 2 b.i.d., omeprazole 10 b.i.d., Pravachol 40 daily, Zyloprim 200 daily, Coreg 6.25 b.i.d., Plavix 75 daily, Cozaar 50 daily, Cardizem ER 120 daily, colchicine 0.6 daily, sevelamer 800 t.i.d., vitamin B complex daily, [place] p.r.n. DISCHARGE CONDITION: Stable. DISCHARGE TIME: 32 minute discharge.
[2016-08-06 15:14] LABS: HEPATITIS PROFILE ACUTE SEE COMMENTS (())
== END 2016-08-05 13:58 | disposition home or self-care (01) | DRG 193 ==
LOC: ED 11:25 → 3N 16:58
PROVIDERS: ATTEND Internal Medicine
PROC: 5A1D00Z (ICD-10-PCS; principal; 2016-08-03)
DX: J18.9 Pneumonia, unspecified organism (principal); N18.6 End stage renal disease; J90 Pleural effusion, not elsewhere classified; I12.0 Hypertensive chronic kidney disease with stage 5 chronic kidney disease or end stage renal disease; E87.1 Hypo-osmolality and hyponatremia; Z94.0 Kidney transplant status; E66.01 Morbid (severe) obesity due to excess calories; D64.9 Anemia, unspecified; E78.5 Hyperlipidemia, unspecified; I70.90 Unspecified atherosclerosis; M10.9 Gout, unspecified; R74.8 Abnormal levels of other serum enzymes; K21.9 Gastro-esophageal reflux disease without esophagitis; E87.70 Fluid overload, unspecified; Z99.2 Dependence on renal dialysis; Z85.72 Personal history of non-Hodgkin lymphomas; Z90.5 Acquired absence of kidney; Z79.899 Other long term (current) drug therapy; Z79.02 Long term (current) use of antithrombotics/antiplatelets; Z68.26 Body mass index [BMI] 26.0-26.9, adult; Z82.49 Family history of ischemic heart disease and other diseases of the circulatory system; Z83.3 Family history of diabetes mellitus
CPT/HCPCS: 71010; 71020; 71250; 80053; 80069; 80074; 80076; 83880; 85025; 85027; 87040; 87070; 87205; 93005; 94640; 94761; 94799; 96365; J0692; J1644; J2185; J2543; J3370; J7030

== ENCOUNTER 2016-08-09 10:51 | Day surgery (SDC) | payer OTHER ==
[2016-08-09 11:49] VITALS: BP 117/84
[2016-08-09 11:51] LABS: HEMATOCRIT 28.6 % (42.0-52.0); HEMOGLOBIN 9.2 g/dL (14.0-18.0); MCH 22.5 PG (27-31); MCHC 32.2 g/dL (33-37); MCV 69.9 FL (81-99); PLT 220 X1000 (130-400); RBC 4.09 XMIL (4.7-6.1)
[2016-08-09 12:03] LABS: ALBUMIN 2.9 g/dL (3.5-5.0); CALCIUM 8.3 mg/dL (8.8-10.2); POTASSIUM 4.1 mmol/L (3.5-5.1)
[2016-08-09] MEDS ORDERED: TIGHT: 0.2 ML/HR MISC PRN (12:28)
[2016-08-09] MEDS ORDERED: NS 2,000 ML MISC PRN (12:28)
[2016-08-09] MEDS ORDERED: HEPARIN IV PRN (12:28)
== END 2016-08-09 15:02 | disposition home or self-care (01) ==
LOC: INF 10:51
PROVIDERS: ATTEND Internal Medicine Nephrology
DX: N18.6 End stage renal disease (principal); D63.1 Anemia in chronic kidney disease; Z99.2 Dependence on renal dialysis
CPT/HCPCS: 80069; 85027; 86850; 86900; 86901; 86920